=== PATIENT | male | born 1985 ===

== ENCOUNTER 2021-02-24 00:45 | Emergency (ER) | payer OTHER ==
--- NOTE | 2021-02-24 01:11 | ER ---
Nurse's Notes [facility] Name: Shiva Díaz Age: 35 yrs Sex: Male : 1985 Arrival Date: 02/24/2021 Time: 00:46 Bed 6 Private MD: Diagnosis: Dental caries;Fractured dental restorative material, unspecified Presentation: 02/24 00:59 Chief complaint: Patient states: I am having toothache started today, I feel my heart rr5 is beating fast because of the pain. Coronavirus screen: Client denies travel out of the [place] in the last 14 days. At this time, the client does not indicate any symptoms associated with coronavirus-19. Ebola Screen: Patient negative for fever greater than or equal to 101.5 degrees Fahrenheit, and additional compatible Ebola Virus Disease symptoms Patient denies exposure to infectious person. Patient denies travel to an Ebola-affected area in the 21 days before illness onset. Initial Sepsis Screen: Does the patient meet any 2 criteria? No. Patient's initial sepsis screen is negative. Does the patient have a suspected source of infection? No. Patient's initial sepsis screen is negative. Risk Assessment: Do you want to hurt yourself or someone else? Patient reports no desire to harm self or others. Onset of symptoms was February 24, 2021. 00:59 Method Of Arrival: Ambulatory rr5 00:59 Acuity: BILLY 4 rr5 Triage Assessment: 01:00 EENT: Reports pain in lower right third molar. rr5 Historical: - Allergies: 01:02 No Known Allergies; rr5 - Home Meds: 01:02 levothyroxine oral [Active]; rr5 - PMHx: 01:02 Hypothyroidism; rr5 - PSHx: 01:02 Thyroidectomy; rr5 - Immunization history:: Adult Immunizations unknown. - Social history:: Smoking status: unknown Patient/guardian denies using alcohol, street drugs, tobacco products. Screenin:02 Abuse screen: Denies threats or abuse. Denies injuries from another. Nutritional rr5 screening: No deficits noted. Tuberculosis screening: No symptoms or risk factors identified. Fall Risk None identified. Total Robles Fall Scale indicates No Risk (0-24 pts). Assessment: 01:03 General: Appears in no apparent distress. uncomfortable, Behavior is calm, cooperative. rr5 Pain: Complains of pain in lower right third molar Pain currently is 8 out of 10 on a pain scale. Quality of pain is described as aching, Pain began gradually, Is intermittent. Neuro: Level of Consciousness is awake, alert, obeys commands, Oriented to person, place, time. Cardiovascular: Capillary refill < 3 seconds Patient's skin is warm and dry. Respiratory: Airway is patent Respiratory effort is even, unlabored, Respiratory pattern is regular, symmetrical. EENT: crown removed. Derm: Skin is pink, warm \T\ dry. Musculoskeletal: No signs and/or symptoms reported regarding the musculoskeletal system. 01:30 Reassessment: Patient appears in no apparent distress at this time. Patient is alert, rr5 oriented x 3, equal unlabored respirations, skin warm/dry/pink. discharge instruction given and explained without complaints made. Vital Signs: 00:59 BP 131 / 101; Pulse 59; Resp 16; Temp 97.8; Pulse Ox 99% ; Weight 125 kg; Height 6 ft. rr5 0 in. (185 cm); Pain 8/10; 00:59 Body Mass Index 36.52 (125.00 kg, 185 cm) rr5 ED Course: 00:46 Patient arrived in ED. ag3 00:59 Gregorio Ayala, CURT is Primary Nurse. rr5 01:01 Triage completed. rr5 01:02 Arm band placed on right wrist. rr5 01:07 Patient has correct armband on for positive identification. Bed in low position. Call rr5 light in reach. 01:08 Akhil Caicedo MD is Attending Physician. tw4 01:30 No provider procedures requiring assistance completed. Patient did not have IV access rr5 during this emergency room visit. Administered Medications: 01:24 Drug: HYDROcodone-acetaminophen 5 mg-325 mg 2 tabs {Note: rass 0.} Route: PO; rr5 01:29 Follow up: Response: Medication administered at discharge. rr5 01:24 Drug: Amoxicillin 500 mg Route: PO; rr5 01:30 Follow up: Response: Medication administered at discharge. rr5 01:29 Not Given (Patient Refused): TORadol (ketorolac) 60 mg IM once rr5 Outcome: 01:09 Discharge ordered by . tw4 01:29 Discharged to home ambulatory. rr5 01:29 Condition: stable 01:29 Discharge instructions given to patient, Instructed on discharge instructions, follow up and referral plans. medication usage, Demonstrated understanding of instructions, follow-up care, medications, Prescriptions given X 2. 01:30 Patient left the ED. rr5 Signatures: Akhil Caicedo MD MD tw4 Telma Javier ag3 Gregorio Ayala RN RN rr5 Corrections: (The following items were deleted from the chart) 01:32 01:03 Pain: Complains of pain in lower right second molar Pain currently is 8 out of 10 rr5 on a pain scale. Quality of pain is described as aching, Pain began gradually, Is intermittent, rr5 01:32 01:03 EENT: crown removed. rr5 rr5
--- NOTE | 2021-02-24 01:11 | EDPHYS ---
Physician Documentation [facility] Name: Shiva Díaz Age: 35 yrs Sex: Male : 1985 Arrival Date: 02/24/2021 Time: 00:46 Bed 6 Private MD: CAROLINE Physician Akhil Caicedo HPI: 02/24 05:04 This 35 yrs old Male presents to ER via Ambulatory with complaints of Toothache. tw4 05:04 The patient presents with broken tooth/teeth. The problem is located in the lower right tw4 third molar. Onset: The symptoms/episode began/occurred today. Duration: The symptoms are continuous, and are unchanged since they started. Modifying factors: The symptoms are alleviated by nothing, the symptoms are aggravated by nothing. Associated signs and symptoms: The patient has no apparent associated signs or symptoms. Severity of symptoms: At their worst the symptoms were moderate, in the emergency department the symptoms are unchanged. The patient has not experienced similar symptoms in the past. Historical: - Allergies: 01:02 No Known Allergies; rr5 - Home Meds: 01:02 levothyroxine oral [Active]; rr5 - PMHx: 01:02 Hypothyroidism; rr5 - PSHx: 01:02 Thyroidectomy; rr5 - Immunization history:: Adult Immunizations unknown. - Social history:: Smoking status: unknown Patient/guardian denies using alcohol, street drugs, tobacco products. ROS: 05:04 Constitutional: Negative for fever, chills, and weight loss, Eyes: Negative for injury, tw4 pain, redness, and discharge, Cardiovascular: Negative for chest pain, palpitations, and edema, Respiratory: Negative for shortness of breath, cough, wheezing, and pleuritic chest pain, Abdomen/GI: Negative for abdominal pain, nausea, vomiting, diarrhea, and constipation, Back: Negative for injury and pain, MS/Extremity: Negative for injury and deformity, Skin: Negative for injury, rash, and discoloration. 05:04 ENT: Positive for Teeth pain Exam: 05:04 Constitutional: This is a well developed, well nourished patient who is awake, alert, tw4 and in no acute distress. Chest/axilla: Normal chest wall appearance and motion. Nontender with no deformity. No lesions are appreciated. Cardiovascular: Regular rate and rhythm with a normal S1 and S2. No gallops, murmurs, or rubs. Normal PMI, no JVD. No pulse deficits. Respiratory: Lungs have equal breath sounds bilaterally, clear to auscultation and percussion. No rales, rhonchi or wheezes noted. No increased work of breathing, no retractions or nasal flaring. 05:04 ENT: Dental exam: dental caries, specifically in the lower right third molar (#32). Vital Signs: 00:59 BP 131 / 101; Pulse 59; Resp 16; Temp 97.8; Pulse Ox 99% ; Weight 125 kg; Height 6 ft. rr5 0 in. (185 cm); Pain 8/10; 00:59 Body Mass Index 36.52 (125.00 kg, 185 cm) rr5 MDM: 01:08 Patient medically screened. tw4 05:06 Differential diagnosis: dental caries, gingivitis, dental abscess, pericoronitis. Data tw4 reviewed: vital signs, nurses notes. Data interpreted: Pulse oximetry: Interpretation: normal. Counseling: I had a detailed discussion with the patient and/or guardian regarding: the historical points, exam findings, and any diagnostic results supporting the discharge/admit diagnosis. Medication response: Toradol markedly relieved the patient's pain. Response to treatment: and as a result, I will discharge patient. Special discussion: I discussed with the patient/guardian in detail that at this point there is no indication for admission to the hospital. It is understood, however, that if the symptoms persist or worsen the patient needs to return immediately for re-evaluation. Administered Medications: 01:24 Drug: HYDROcodone-acetaminophen 5 mg-325 mg 2 tabs {Note: rass 0.} Route: PO; rr5 01:29 Follow up: Response: Medication administered at discharge. rr5 01:24 Drug: Amoxicillin 500 mg Route: PO; rr5 01:30 Follow up: Response: Medication administered at discharge. rr5 01:29 Not Given (Patient Refused): TORadol (ketorolac) 60 mg IM once rr5 Disposition: 02/24/21 01:09 Discharged to Home. Impression: Dental caries, Fractured dental restorative material, unspecified. - Condition is Stable. - Discharge Instructions: Dental Caries, Adult, Dental Pain. - Prescriptions for Ibuprofen 800 mg Oral Tablet - take 1 tablet by ORAL route every 8 hours As needed take with food; 30 tablet. Tylenol- Codeine #3 300-30 mg Oral Tablet - take 2 tablet by ORAL route every 4-6 hours As needed; 6 tablet. - Medication Reconciliation Form, Thank You Letter, Antibiotic Education, Prescription Opioid Use form. - Follow up: Private Physician; When: Upon discharge from the Emergency Department; Reason: Recheck today's complaints, Continuance of care, Re-evaluation by your physician. - Problem is new. - Symptoms have improved. Signatures: Akhil Caicedo MD MD tw4 Gregorio Ayala RN RN rr5 Corrections: (The following items were deleted from the chart) 01:30 01:09 02/24/2021 01:09 Discharged to Home. Impression: Dental caries; Fractured dental rr5 restorative material, unspecified. Condition is Stable. Forms are Medication Reconciliation Form, Thank You Letter, Antibiotic Education, Prescription Opioid Use. Follow up: Private Physician; When: Upon discharge from the Emergency Department; Reason: Recheck today's complaints, Continuance of care, Re-evaluation by your physician. Problem is new. Symptoms have improved. tw4
[2021-02-24] MEDS ORDERED: AMOXICILLIN TRIHYDR 250 MG CAP ONE (01:31)
[2021-02-24] MEDS ORDERED: HYDROCODONE/APAP 5/325 MG TAB ONE ×2 (01:32→01:46)
[2021-02-24] MEDS ORDERED: KETOROLAC 30 MG/ML INJ ONE (01:32)
[2021-02-24 01:35] VITALS: BP 131/101; TEMP 97.8; O2SAT 99
== END 2021-02-24 01:30 | disposition home or self-care (01) ==
LOC: ER 00:45
DX: S02.5XXA Fracture of tooth (traumatic), initial encounter for closed fracture (principal); E03.9 Hypothyroidism, unspecified
CPT/HCPCS: 99283